=== PATIENT | male | born 1940 | race Caucasian/White ===

== ENCOUNTER 2016-06-21 12:58 | Day surgery (SDC) | payer MEDICARE, OTHER ==
[~2016-06-21 12:58] MED LIST: DIPRIVAN 200 MG/20 ML IV ONE; Lactated Ringers 1,000 ML IV ONE; Lactated Ringers 1,000 ML IV SCH; SUBLIMAZE 100 MCG/2 ML IV ONE; Versed 2 MG/2 ML Injection IV ONE
[2016-06-21 13:18] VITALS: O2SAT 97
[2016-06-21 17:39] VITALS: BP 146/90; PULSE 73
--- NOTE | 2016-06-22 08:42 | OP ---
PROCEDURE DATE/TIME: 06/21/2016 1615 PREOPERATIVE DIAGNOSIS: History of colonic polyps, need for screening colonoscopy. POSTOPERATIVE DIAGNOSIS: Descending colon polyp x2. PROCEDURE: Colonoscopy with hot forceps polypectomy x2 and tattoo in the descending colon at approximately 65 cm. PROCEDURE PERFORMED BY: Jessica Solis M.D. COMPLICATIONS: None. ESTIMATED BLOOD LOSS: Minimal. ANESTHESIA: MAC. SPECIMEN: Descending colon polyps. HISTORY: This is a 75 year-old gentleman who presents for screening colonoscopy. 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 He has not had any new symptoms. All risks, benefits, alternatives to colonoscopy were discussed with the patient in detail. He agreed to proceed. DESCRIPTION OF PROCEDURE: The patient was seen preoperatively as well. He was then brought back to the endoscopy suite and laid in the left lateral decubitus position. A complete time out was performed. A rectal exam was then done. The patient does have external hemorrhoid this disease is mild. The scope was then entered and carefully advanced towards the cecum. Throughout the course there was a small amount of liquid stool that had to be suctioned and irrigated. The patient has mild sigmoid diverticulosis. He had two polyps in the descending colon. We were able to advance the scope all the way to the cecum. The ileocecal valve was visualized. The appendiceal orifice was visualized and these were all normal. As the scope was carefully withdrawn, we took a circumferential inspection. I did not see any issues except for the polyps in the descending colon. These were at approximately 65 cm. The first polyp was more sessile. I had to take three bites with a hot forceps polypectomy to completely remove this but the polyp was removed in its entirety this was done with hot forceps. It was hemostatic. There was another polyp very close by to this about 3 cm more distal and this was taken with hot forceps polypectomy this was very small and appeared benign. It was sent in the same jar to pathology. I then placed a tattoo dye in the usual fashion at the site of the piecemeal polypectomy due to the patient's previous history of cancer in the polyp. Also, I did not think this appeared malignant but if there are any concerning features on the pathology then we will be able to survey this area closer in the future if need be. After the tattoo was complete we confirmed that we had blue dye near to the polypectomy site as well as across from it at both sites where we placed the tattoo ink this looked good. Everything was hemostatic. We then carefully withdrew the scope. I did not find any other issues. The patient tolerated the procedure well. There were no complications. He is going to follow up with me for the results. Should he have any sign of dysplasia, we will survey the colon on a short interval basis. If he does not have any concerning features on the pathology, our plan for the next colonoscopy will be in approximately two years.
== END 2016-06-21 17:59 | disposition home or self-care (01) ==
LOC: SDC 12:58
PROVIDERS: ATTEND Surgery
PROC: 0DBM8ZX Excision of Descending Colon, Via Natural or Artificial Opening Endoscopic, Diagnostic (ICD-10-PCS; principal; 2016-06-21)
DX: D12.4 Benign neoplasm of descending colon (principal); Z86.010 Personal history of colon polyps; Z12.11 Encounter for screening for malignant neoplasm of colon; Z85.118 Personal history of other malignant neoplasm of bronchus and lung; I10 Essential (primary) hypertension; I25.10 Atherosclerotic heart disease of native coronary artery without angina pectoris; E11.9 Type 2 diabetes mellitus without complications; Z79.4 Long term (current) use of insulin; N40.0 Benign prostatic hyperplasia without lower urinary tract symptoms; M54.9 Dorsalgia, unspecified; G89.29 Other chronic pain; Z79.899 Other long term (current) drug therapy
CPT/HCPCS: 00810; 36415; 82962; 88305; 99100; J2250; J2704; J3010

== ENCOUNTER 2018-08-19 09:12 | Day surgery (SDC) | payer MEDICARE, OTHER ==
[~2018-08-19 09:12] MED LIST changes: -DIPRIVAN 200 MG/20 ML IV ONE; -SUBLIMAZE 100 MCG/2 ML IV ONE; -Versed 2 MG/2 ML Injection IV ONE
[2018-08-19] MEDS ORDERED: DIPRIVAN 200 MG/20 ML IV ONE (09:13)
[2018-08-19] MEDS ORDERED: Lactated Ringers 1,000 ML IV ONE ×2 (09:39→13:11)
[2018-08-19 15:26] VITALS: BP 133/64; PULSE 77; O2SAT 96
--- NOTE | 2018-08-20 11:13 | OP ---
PROCEDURE DATE/TIME: 08/19/2018 1305 PREOPERATIVE DIAGNOSIS: Surveillance/screening. Patient has history of colon polyps. POSTOPERATIVE DIAGNOSIS: Multiple sessile colonic polyps, pancolonic diverticulosis and severe hemorrhoidal disease. PROCEDURE: Colonoscopy with hot snare polypectomy x4 and hot forceps polypectomy x4. PROCEDURE PERFORMED BY: Jessica Solis M.D. COMPLICATIONS: None. ESTIMATED BLOOD LOSS: Minimal. ANESTHESIA: MAC. SPECIMENS: 1) Cecal polyp taken with hot snare. 2) Large sessile cecal polyp taken with multiple passes of the hot snare with an additional pass of hot forceps. Large sessile cecal taken with hot snare and tattoo placed next to this as well as a clip at site. 3) Ascending polyp taken with hot forceps. 4) Transverse colon polyps x3 taken with hot forceps. 5) Descending polyp taken with hot snare. 6) Distal descending colon polyp hot snare at 60 cm, tattoo placed here, taken with hot snare. FOLLOW UP: Colonoscopy in three months due to high number of sessile high-risk polyps. HISTORY: This is a 78 year-old gentleman who has had polyps in the past. He presents for colonoscopy. Risks, benefits, alternatives discussed with him preoperatively and he wants to proceed. He was seen in the preoperative area. H&P and consent reviewed with him and confirmed. DESCRIPTION OF PROCEDURE: He was brought back to the endoscopy suite, laid in left lateral decubitus position. A complete time out was performed. Rectal exam done. The patient does have moderate to severe hemorrhoidal disease internal and external. The scope was then inserted and gently advanced to the level of the cecum. The scope was easily navigated to the cecum without any difficulty. There was however a moderate amount of thick liquid stool throughout the colon which we did have to suction and irrigate. We were able to navigate all the way to the cecum and visualized ileocecal valve as well as the appendiceal orifice. These were normal however there were two sessile polyps in the cecum. The first polyp was a smaller sessile polyp which was taken with hot snare this was on the more lateral border of the cecum this was taken in its entirety, retrieved and sent to pathology. Fairly close to the appendiceal orifice but not immediately adjacent to it there was a larger sessile cecal polyp this polyp wrapped around the fold. I had to take pictures from different angles to show the size of this because it did wrap around the fold. There were multiple finger projections of this polyp, very irregular shape. It does not look malignant at all. It looks benign but it is definitely difficult to remove due to its irregular borders with long fingers and the fact that it curves around on both side of a fold. I took the bulk of this polyp out initially with a hot snare on the one side of the fold and then I took the other side of the fold out with hot snare and then the central aspect of the fold I had to use hot snare again as well as hot forceps to completely piecemeal remove this polyp. I did not see any polyp remaining. I did place a clip to insure hemostasis at the center aspect of this polyp. The entire polyp was removed. All specimens were retrieved and sent to pathology together as sessile cecal polyp and then to insure that we know that this polyps pathology is separate than the other polyp, I did place a tattoo dye adjacent to this polyp site for further very close surveillance since this will be needed due to the size and sessile nature of the polyp. We then carefully retrieved the scope taking a circumferential view. I found multiple other polyps. There was one ascending and three transverse colon polyps which were all sessile in nature but smaller. These were all taken with hot forceps in entirety and sent to pathology. There were then two descending colon polyps which were moderate sessile polyps. The first descending colon polyp was taken in its entirety with hot snare, retrieved and sent to pathology. The site was hemostatic. Then the sixth specimen was the distal descending polyp this was actually the eighth polyp but labeled as Specimen #6. This appeared to have a central scar making me concerned that this was possibly regrowth from a prior descending polyp removal. This was close to the old tattoo. This was at 60 cm. I took this in its entirety with hot snare and sent this to pathology. I placed a new tattoo since the old tattoo was very faint and about 2 cm away. I placed a new tattoo at this site for close surveillance and monitoring as I think this will be needed here as well as in the cecum. Everything was hemostatic and then the scope was further withdrawn. No other findings were noted. The patient's prep was not perfect. He does need a scope in three months to survey the sigmoid lesion as well as the cecum and I will try to have him do another enema prior to his next procedure so that we can look at the sigmoid colon mucosa better as well as the remainder of the colon even better because of the tendency that he has to form very flat polyp which are very difficult to see and he did have enough stool that another small or flat lesion could be missed. We will further prep him for next colonoscopy. I have discussed all the findings with his family in the postoperative area. He is going to follow up with me as an outpatient to discuss his initial report and then he will follow up with me again for close surveillance colonoscopy due to our findings from today.
== END 2018-08-19 15:20 | disposition home or self-care (01) ==
LOC: SDC 09:12
PROVIDERS: ATTEND Surgery
DX: Z12.11 Encounter for screening for malignant neoplasm of colon (principal); K57.30 Diverticulosis of large intestine without perforation or abscess without bleeding; K64.4 Residual hemorrhoidal skin tags; K64.8 Other hemorrhoids; D12.0 Benign neoplasm of cecum; K63.5 Polyp of colon; D12.4 Benign neoplasm of descending colon; Z86.010 Personal history of colon polyps
CPT/HCPCS: 88305; 99100; J2704

== ENCOUNTER 2021-11-08 03:08 | Emergency (ER) | payer MEDICARE, OTHER ==
[2021-11-08 04:48] VITALS: O2SAT 99
[2021-11-08] MEDS ORDERED: Hydromorphone 1 mg/ml Injection IM ONE (04:49)
[2021-11-08] MEDS ORDERED: Norflex 60 MG/2 ML IM ONE (04:50)
[2021-11-08] MEDS ORDERED: ZOFRAN ODT 4 MG PO ONE (04:51)
[2021-11-08] MEDS ORDERED: Norflex 60 MG/2 ML ONE (04:55)
[2021-11-08] MEDS ORDERED: ZOFRAN ODT 4 MG ONE (04:55)
[2021-11-08] MEDS ORDERED: Hydromorphone 1 mg/ml Injection ONE (04:55)
[2021-11-08] MEDS ORDERED: KEFLEX 500 MG PO ONE (05:01)
[2021-11-08] MEDS ORDERED: KEFLEX 500 MG ONE (05:05)
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
[2021-11-08 05:19] VITALS: BP 132/78; PULSE 75
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
== END 2021-11-08 05:48 | disposition home or self-care (01) ==
LOC: ED 03:08
DX: S30.810A Abrasion of lower back and pelvis, initial encounter (principal); S70.311A Abrasion, right thigh, initial encounter; S70.211A Abrasion, right hip, initial encounter; S40.811A Abrasion of right upper arm, initial encounter; W18.09XA Striking against other object with subsequent fall, initial encounter; Y93.H9 Activity, other involving exterior property and land maintenance, building and construction; E78.5 Hyperlipidemia, unspecified; E11.9 Type 2 diabetes mellitus without complications; I10 Essential (primary) hypertension; Z79.4 Long term (current) use of insulin; Z79.84 Long term (current) use of oral hypoglycemic drugs; Z79.899 Other long term (current) drug therapy; Z79.891 Long term (current) use of opiate analgesic
CPT/HCPCS: 72131; 72192; 96372; 99283; J1170; J2360; Q0162; A9270-GY

== ENCOUNTER 2023-09-18 17:52 | Emergency (ER) | payer MEDICARE, OTHER ==
[2023-09-18 18:00] VITALS: RESP 18; TEMP 97.2
[2023-09-18] MEDS ORDERED: TETRACAINE 0.5% STERI-UNIT SOL OP ONE ×2 (18:07→18:55)
[2023-09-18] MEDS ORDERED: Fluor-I-Strip/Ful-Flo OP ONE ×2 (18:07→18:55)
[2023-09-18] MEDS ORDERED: Eye-Stream Solution ONE (18:08)
[2023-09-18] MEDS: Fluor-I-Strip/Ful-Flo OP ONE (18:57)
[2023-09-18] MEDS: TETRACAINE 0.5% STERI-UNIT SOL OP STA (18:57)
--- NOTE | 2023-09-18 18:57 | ERPHSYRPT ---
- History of Present Illness Time Seen by Provider: 09/18/23 18:57 Source: patient Exam Limitations: no limitations Patient Subjective Stated Complaint: pt here for pain and tearing to left eye, he was mowing and states had a stick poke left eye Triage Nursing Assessment: pt alert, resp easy, walked in. has redness and tearing to left eye Physician History: The patient, an 83-year-old with diabetes and 20/20 vision, presents after a tree limb recoiled and struck him in the eye while he was mowing and trimming limbs. He describes a sensation of a foreign body in the eye, which persisted despite three attempts at flushing the eye. He denies any prior eye injuries and only requires reading glasses. Timing/Duration: today Location: left eye Severity: moderate Apparent Injury: possibly Associated Symptoms: pain, redness, foreign body sensation Visual Assistive Devices: None Chemical Exposure: No Trauma: Yes Welding Arc/Tanning Bed Exposure: No Allergies/Adverse Reactions: No Known Drug Allergies Allergy (Verified 09/18/23 17:58) Home Medications: Dutasteride/Tamsulosin HCl [Karissa 0.5-0.4 mg Capsule] 1 each PO DAILY 07/19/12 [History] Esomeprazole Magnesium [Nexium] 40 mg PO DAILY 07/19/12 [History] Gemfibrozil [Lopid] 600 mg PO BID 07/19/12 [History] Indomethacin [Indocin] 25 mg PO UD PRN 07/19/12 [History] Metformin HCl [Glucophage] 1,000 mg PO BID 07/19/12 [History] Metoprolol Succinate 50 mg [Toprol Xl 50 MG] 50 mg PO DAILY 07/19/12 [History] Potassium Chloride Tab* [Klor Con] 10 meq PO DAILY 07/19/12 [History] Multivitamin [Multivitamins] 1 each PO DAILY 06/09/16 [History] Zolpidem Tartrate 10 mg PO DAILY 06/09/16 [History] Insulin Glargine [Lantus Insulin] 40 unit SQ DAILY 06/21/16 [History] Levothyroxine Sodium 25 Mcg [Synthroid 25 Mcg] 25 mcg PO DAILY 06/21/16 [History] Rosuvastatin Calcium [Crestor] 20 mg PO DAILY 06/21/16 [History] Gabapentin 100 mg PO BID 08/19/18 [History] Hx Tetanus, Diphtheria Vaccination/Date Given: No Hx Influenza Vaccination/Date Given: Yes (2011) Hx Pneumococcal Vaccination/Date Given: Yes (2009) Travel Risk - International Travel Have you traveled outside of the country in past 3 weeks: No - Emerging Infectious Disease Are you exhibiting symptoms associated with any current EIDs: No - Review of Systems All Other Systems: Reviewed and Negative - Past Medical History Pertinent Past Medical History: Yes Neurological History: No Pertinent History ENT History: No Pertinent History Cardiac History: Coronary Artery Disease, Hypertension Respiratory History: Lung Cancer Endocrine Medical History: Diabetes Type II, Hypothyroidism Musculoskeletal History: Osteoarthritis GI Medical History: Other History: No Pertinent History Psycho-Social History: No Pertinent History Male Reproductive Disorders: Prostate Problems Other Medical History: TYPE II IDDM, CAD W/ 2 STENTS. hiatal hernia - Past Surgical History Past Surgical History: Yes Neuro Surgical History: No Pertinent History Cardiac: Cardiac Catheterization, Cardiac Stent Respiratory: Other Gastrointestinal: No Pertinent History Genitourinary: No Pertinent History Musculoskeletal: No Pertinent History Male Surgical History: No Pertinent History Other Surgical History: prostate bx, colon polypectomy. bilateral heel spur repair. top lobe removed right lung - Social History Smoking Status: Never smoker How long have you smoked: 25yrs Exposure to second hand smoke: No Drug Use: none - Social Determinants of Health Will the patient participate in the screening: Declined to provide - Nursing Vital Signs Nursing Vital Signs: Initial Vital Signs Temperature 97.2 F 09/18/23 17:59 Pulse Rate 86 09/18/23 17:59 Respiratory Rate 18 09/18/23 17:59 Blood Pressure 175/101 09/18/23 17:59 O2 Sat by Pulse Oximetry 98 09/18/23 17:59 Pain Scale Pain Intensity 4 - Physical Exam General Appearance: no apparent distress Vision Acuity Degree Evaluation Phase: Uncorrected Eye Exam: right eye: PERRL, EOMI, corneal abrasion SpO2: 96 Procedures - Eye Procedure Time of Procedure: 19:15 Timeout: Performed Tetracaine Drops Administered: Yes Remaining Material after FB Removal: none Eye Irrigated w/ Saline (ccs): 5 - Course Nursing assessment & vital signs reviewed: Yes Ordered Tests: Medication Summary Discontinued Medications Generic Name Dose Route Start Last Admin Trade Name Freq PRN Reason Stop Dose Admin Eye Irrigation Solution Confirm 09/18/23 18:08 Sodium/Potassium/Julio/Magnesium 30 Ml Eye Wash Administered 09/18/23 18:09 Dose 30 ml .ROUTE .STK-MED ONE Eye Irrigation Solution 15 ml 09/18/23 19:20 09/18/23 19:22 Sodium/Potassium/Julio/Magnesium 30 Ml Eye Wash OP 09/18/23 19:21 15 ml STAT ONE Administration Fluorescein Sodium Confirm 09/18/23 18:07 Fluorescein Sodium 1 Mg/Strip Strip Administered 09/18/23 18:08 Dose 1 mg OP .STK-MED ONE Fluorescein Sodium 1 mg 09/18/23 18:56 09/18/23 18:57 Fluorescein Sodium 1 Mg/Strip Strip OP 09/18/23 18:57 1 mg STAT ONE Administration Fluorescein Sodium Confirm 09/18/23 18:55 Fluorescein Sodium 1 Mg/Strip Strip Administered 09/18/23 18:56 Dose 1 mg OP .STK-MED ONE Tetracaine HCl Confirm 09/18/23 18:07 Tetracaine Hcl/Pf 4 Ml Bottle Administered 09/18/23 18:08 Dose 4 ml OP .STK-MED ONE Tetracaine HCl 4 ml 09/18/23 18:56 09/18/23 18:57 Tetracaine Hcl/Pf 4 Ml Bottle OP 09/18/23 18:57 4 ml STAT STA Administration Tetracaine HCl Confirm 09/18/23 18:55 Tetracaine Hcl/Pf 4 Ml Bottle Administered 09/18/23 18:56 Dose 4 ml OP .STK-MED ONE - Progress Progress: improved Progress Note: Large corneal abrasion overlying pupil. Responded well to tetracaine eye gtts. No foreign body appreciated. Washed out after stain. Prescribed polytrim gtts and ketorolac gtts. Counseled pt/family regarding: diagnosis, need for follow-up Medical Desision Making - Diagnostic Testing Diagnostic test were ordered, analyzed, and reviewed by me: Yes Radiological Interpretation: Interpreted by me - Risk of complications The pt has a mod risk of morbidity or mortality based on: Need for prescription drug management - Departure Departure Disposition: Home Clinical Impression: Corneal abrasion, left Condition: Good Critical Care Time: No Referrals: LAMONTE AGUILAR DO [Primary Care Provider] - Follow up/PCP as directed Instructions: Corneal Abrasion ED Prescriptions: Ketorolac Tromethamine 0.5% [Acular OPTH RONALD] 1 drop OP BID PRN 7 Days #10 ml PRN Reason: Pain Polymyxin B Sulf/Trimethoprim [Polytrim Eye Drops] 1 drop OP Q3H 7 Days #10 ml MDD 6
[2023-09-18] MEDS: Eye-Stream Solution OP ONE (19:22)
[2023-09-18 19:28] VITALS: BP 169/99; PULSE 83
[2023-09-19 20:37] VITALS: O2SAT 96
== END 2023-09-18 19:26 | disposition home or self-care (01) ==
LOC: ED 17:52
DX: S05.02XA Injury of conjunctiva and corneal abrasion without foreign body, left eye, initial encounter (principal); W20.8XXA Other cause of strike by thrown, projected or falling object, initial encounter; Y93.H2 Activity, gardening and landscaping; I10 Essential (primary) hypertension; E11.9 Type 2 diabetes mellitus without complications; Z79.84 Long term (current) use of oral hypoglycemic drugs; Z79.4 Long term (current) use of insulin; Z79.899 Other long term (current) drug therapy
CPT/HCPCS: 99281; A9270-GY

== ENCOUNTER 2023-12-23 18:14 | Emergency (ER) | payer MEDICARE, OTHER ==
[2023-12-23 18:34] VITALS: TEMP 97.7
--- NOTE | 2023-12-23 18:47 | ERPHSYRPT ---
- History of Present Illness Source: patient, family Exam Limitations: no limitations Patient Subjective Stated Complaint: C/O headache to right side of head and behind right eye that started this am and has become worse throughout the day. Patient states that he did fall one week ago () and hit his head. Triage Nursing Assessment: Patient ambulated back to ER without difficulties. He is alert and oriented. Hard of hearing; hearing aids present. SNOWDEN WNL. No skin alterations noted to area of reported pain. Patient denies any changes in his vision but states his right eye doesn't wnat to stay open. Time of Onset/Last Time Seen Normal: around 8 AM Timing/Duration: today Severity: moderate Character of Deficits: vision problems (right eye) Deficits: no difficulties Baseline/Normal Cognition: alert oriented x 3 Current Cognition: alert oriented x 3 Associated Symptoms: denies symptoms Hx Tetanus, Diphtheria Vaccination/Date Given: Yes Hx Influenza Vaccination/Date Given: Yes Hx Pneumococcal Vaccination/Date Given: Yes Immunizations Up to Date: Yes <ANNAMARIE GONZALEZ - Last Filed: 12/23/23 18:47> <TIMMY WILLETT - Last Filed: 12/23/23 23:29> - History of Present Illness Time Seen by Provider: 12/23/23 18:42 Physician History: /O headache to right side of head and behind right eye that started this am and has become worse throughout the day. Patient states that he did fall one week ago (12/16/23) and hit his head. Is 83-year-old male with significant past medical history of hypertension diabetes benign prostatic hyperplasia who fell 1 week ago and hit his head. He was all right till today morning he started having a headache on his right side of the face behind the right eye with loss of some vision for few seconds happened around 8 to 9:00 in the morning. He continues to have a headache and blurred vision on the right side so he came to the emergency room around 6:00 in the evening. In the ER he still has some headache and blurred vision but his vision has improved since morning. He denies any chest pain nausea vomiting flutter blood in the stool or urine. (ANNAMARIE GONZALEZ) Allergies/Adverse Reactions: No Known Drug Allergies Allergy (Verified 12/23/23 18:24) Home Medications: Dutasteride/Tamsulosin HCl [Karissa 0.5-0.4 mg Capsule] 1 each PO DAILY 07/19/12 [History] Esomeprazole Magnesium [Nexium] 40 mg PO DAILY 07/19/12 [History] Gemfibrozil [Lopid] 600 mg PO BID 07/19/12 [History] Indomethacin [Indocin] 25 mg PO UD PRN 07/19/12 [History] Metformin HCl [Glucophage] 1,000 mg PO BID 07/19/12 [History] Metoprolol Succinate 50 mg [Toprol Xl 50 MG] 50 mg PO DAILY 07/19/12 [History] Potassium Chloride Tab* [Klor Con] 10 meq PO DAILY 07/19/12 [History] Multivitamin [Multivitamins] 1 each PO DAILY 06/09/16 [History] Zolpidem Tartrate 10 mg PO DAILY 06/09/16 [History] Insulin Glargine [Lantus Insulin] 40 unit SQ DAILY 06/21/16 [History] Levothyroxine Sodium 25 Mcg [Synthroid 25 Mcg] 25 mcg PO DAILY 06/21/16 [History] Rosuvastatin Calcium [Crestor] 20 mg PO DAILY 06/21/16 [History] Gabapentin 100 mg PO BID 08/19/18 [History] Travel Risk - International Travel Have you traveled outside of the country in past 3 weeks: No - Emerging Infectious Disease Are you exhibiting symptoms associated with any current EIDs: No <CARLOS,ANNAMARIE - Last Filed: 12/23/23 18:47> - Review of Systems Constitutional: No Fever, No Chills Eyes: Vision Changes (right side blurred vision) Ears, Nose, & Throat: No Symptoms Respiratory: No Cough, No Dyspnea Cardiac: No Chest Pain, No Edema, No Syncope Abdominal/Gastrointestinal: No Abdominal Pain, No Nausea, No Vomiting, No Diarrhea Genitourinary Symptoms: No Dysuria Musculoskeletal: No Back Pain, No Neck Pain Skin: No Rash Neurological: Headache, No Dizziness, No Focal Weakness, No Sensory Changes Psychological: No Symptoms Endocrine: No Symptoms All Other Systems: Reviewed and Negative <CARLOS,ANNAMARIE - Last Filed: 12/23/23 18:47> - Past Medical History Pertinent Past Medical History: Yes Neurological History: No Pertinent History ENT History: No Pertinent History Cardiac History: Coronary Artery Disease, Hypertension Respiratory History: Lung Cancer Endocrine Medical History: Diabetes Type II, Hypothyroidism Musculoskeletal History: Osteoarthritis GI Medical History: Hernia, Other History: No Pertinent History Psycho-Social History: No Pertinent History Male Reproductive Disorders: Prostate Problems Other Medical History: TYPE II IDDM, CAD W/ 2 STENTS. hiatal hernia - Past Surgical History Past Surgical History: Yes Neuro Surgical History: No Pertinent History Cardiac: Cardiac Catheterization, Cardiac Stent Respiratory: Other Gastrointestinal: No Pertinent History Genitourinary: No Pertinent History Musculoskeletal: No Pertinent History Male Surgical History: Other Other Surgical History: prostate biopsy, colon polypectomy, bilateral heel spur repair, top lobe removed right lung - Social History Smoking Status: Never smoker How long have you smoked: 25yrs Exposure to second hand smoke: No Drug Use: none - Social Determinants of Health Will the patient participate in the screening: Yes Do you worry about a steady place to live?: No Do you have any problems with any of the following?: No known problems In the past 12 months,have you had to go without utilities?: No Transportation Issues: No Has anyone in your support network made you feel unsafe?: No Have you or anyone in your house had to go without enough: No <CARLOS,ANNAMARIE - Last Filed: 12/23/23 18:47> - Kenan Coma Scale Best Eye Response (Kenan): (4) open spontaneously Best Verbal Response (Kenan): (5) oriented Best Motor Response (Kenan): (6) obeys commands [place] Total: 15 - Physical Exam General Appearance: no apparent distress, alert Eye Exam: bilateral eye: normal inspection, PERRL, EOMI Ears, Nose, Throat Exam: normal ENT inspection, moist mucous membranes Neck Exam: normal inspection, non-tender, supple Respiratory: normal breath sounds, lungs clear, airway intact, No respiratory distress Cardiovascular: regular rate/rhythm, No edema Gastrointestinal: soft, No tenderness, No distention Back Exam: normal inspection Extremity Exam: normal inspection, No pedal edema Peripheral Pulses: carotid (R): 2+, carotid (L): 2+, femoral (R): 2+, femoral (L): 2+, dorsalis-pedis (R): 2+, dorsalis-pedis (L): 2+ 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, 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 Exam: normal hearing, normal speech, PERRL, tongue midline, No abnormal pupil position, No abnormal speech, No facial asymmetry, No facial droop, No facial paresthesias, No facial weakness Coordination/Gait: normal finger to nose, normal gait Motor/Sensory: no motor deficit, no sensory deficit, no pronator drift DTR: bicep (R): 2+, bicep (L): 2+, tricep (R): 2+, tricep (L): 2+, knee (R): 2+, knee (L): 2+, ankle (R): 2+, ankle (L): 2+ Skin Exam: normal color, warm, dry, No rash SpO2 Interpretation: normal SpO2: 95 O2 Delivery: Room Air < Filed: 12/23/23 18:47> - Nursing Vital Signs Nursing Vital Signs: Initial Vital Signs Temperature 97.7 F 12/23/23 18:20 Pulse Rate 91 H 12/23/23 18:20 Respiratory Rate 22 12/23/23 18:20 Blood Pressure 140/82 12/23/23 18:20 O2 Sat by Pulse Oximetry 95 12/23/23 18:20 Pain Scale Pain Intensity 0 - Course Nursing assessment & vital signs reviewed: Yes EKG Interpreted by Me: Non-specific ST Changes Rhythm Strip: Normal Sinus Rhythm - CT Exams Head CT Interpretation: Tele-radiologist Report < Filed: 12/23/23 18:47> Ordered Tests: Active Orders 24 hr Category Date Time Status EKG-ER Only STAT Care 12/23/23 18:40 Completed NPO (ED) STAT Care 12/23/23 18:40 Completed NPO (ED) STAT Care 12/23/23 18:41 Completed NPO (ED) STAT Care 12/23/23 19:47 Completed HEAD WITHOUT CONTRAST [CT] Stat Exams 12/23/23 19:02 Completed CBC W DIFF Stat Lab 12/23/23 19:02 Completed CMP Stat Lab 12/23/23 19:02 Completed PROTIME WITH INR Stat Lab 12/23/23 19:02 Completed PTT Stat Lab 12/23/23 19:02 Completed TROPONIN Q4H Lab 12/23/23 19:02 Completed Medication Summary Discontinued Medications Generic Name Dose Route Start Last Admin Trade Name Freq PRN Reason Stop Dose Admin Acetaminophen 975 mg 12/23/23 19:17 12/23/23 20:10 Acetaminophen 325 Mg Tablet PO 12/23/23 19:18 Not Given STAT ONE Aspirin 324 mg 12/23/23 19:46 12/23/23 20:13 Aspirin 81 Mg Tab.Chew PO 12/23/23 19:47 324 mg STAT ONE Administration Aspirin Confirm 12/23/23 20:11 Aspirin 81 Mg Tab.Chew Administered 12/23/23 20:12 Dose 324 mg .ROUTE .STK-MED ONE Sodium Chloride 1,000 mls @ 999 mls/hr 12/23/23 18:40 12/23/23 20:30 Sodium Chloride 0.9% 1000 Ml IV 12/23/23 19:40 Not Given .Q1H1M STA Lab/Rad Data: Laboratory Result Diagrams 12/23/23 19:02 12/23/23 19:02 Laboratory Results 12/23/23 12/23/23 12/23/23 Range/Units 19:02 19:02 19:02 WBC (4.23-9.07) x10^3/uL RBC (4.63-6.08) x10^6/uL Hgb (13.7-17.5) g/dL Hct (40.1-51.0) % MCV (79.0-92.2) fL MCH (25.7-32.2) pg MCHC (32.3-36.5) g/dL RDW (11.6-14.4) % Plt Count (163-337) x10^3/uL MPV (9.4-12.4) fL Gran % (34.0-67.9) % Immature Gran % (Auto) (0.001-0.429) % Nucleat RBC Rel Count (0.00-0.2) % Eos # (Auto) (0.04-0.54) x10^3/uL Immature Gran # (Auto) (0.001-0.031) x10^3u/L Absolute Lymphs (auto) (1.32-3.57) x10^3/uL Absolute Monos (auto) (0.30-0.82) x10^3/uL Absolute Nucleated RBC (0.00-0.012) x10^3u/L Lymphocytes % (21.8-53.1) % Monocytes % (5.3-12.2) % Eosinophils % (0.8-7.0) % Basophils % (0.2-1.2) % Absolute Granulocytes (1.78-5.38) x10^3/uL Basophils # (0.01-0.08) x10^3/uL PT 10.9 (9.4-12.5) SECONDS INR 1.00 (0.8-3.0) APTT 27.7 (25.1-36.5) SECONDS Sodium 139 (135-145) mmol/L Potassium 4.7 (3.5-5.1) mmol/L Chloride 96 L (98-107) mmol/L Carbon Dioxide 33 H (22-30) mmol/L Anion Gap 14.8 (5-15) MEQ/L BUN 14 (9-20) mg/dL Creatinine 1.06 (0.66-1.25) mg/dL Estimated GFR 69.6 ML/MIN Glucose 370 H (74-106) mg/dL Calcium 9.2 (8.4-10.2) mg/dL Total Bilirubin 0.30 (0.2-1.3) mg/dL AST 28 (17-59) U/L ALT 17 (0-50) U/L Alkaline Phosphatase 106 (38-126) U/L Troponin I < 0.012 (0.000-0.033) ng/mL Serum Total Protein 6.3 (6.3-8.2) g/dL Albumin 3.6 (3.5-5.0) g/dL 12/23/23 Range/Units 19:02 WBC 7.6 (4.23-9.07) x10^3/uL RBC 4.35 L (4.63-6.08) x10^6/uL Hgb 13.0 L (13.7-17.5) g/dL Hct 40.2 (40.1-51.0) % MCV 92.4 H (79.0-92.2) fL MCH 29.9 (25.7-32.2) pg MCHC 32.3 (32.3-36.5) g/dL RDW 13.2 (11.6-14.4) % Plt Count 221 (163-337) x10^3/uL MPV 9.1 L (9.4-12.4) fL Gran % 74.6 H (34.0-67.9) % Immature Gran % (Auto) 1.6 H (0.001-0.429) % Nucleat RBC Rel Count 0.0 (0.00-0.2) % Eos # (Auto) 0.11 (0.04-0.54) x10^3/uL Immature Gran # (Auto) 0.12 H (0.001-0.031) x10^3u/L Absolute Lymphs (auto) 1.20 L (1.32-3.57) x10^3/uL Absolute Monos (auto) 0.46 (0.30-0.82) x10^3/uL Absolute Nucleated RBC 0.00 (0.00-0.012) x10^3u/L Lymphocytes % 15.9 L (21.8-53.1) % Monocytes % 6.1 (5.3-12.2) % Eosinophils % 1.5 (0.8-7.0) % Basophils % 0.3 (0.2-1.2) % Absolute Granulocytes 5.64 H (1.78-5.38) x10^3/uL Basophils # 0.02 (0.01-0.08) x10^3/uL PT (9.4-12.5) SECONDS INR (0.8-3.0) APTT (25.1-36.5) SECONDS Sodium (135-145) mmol/L Potassium (3.5-5.1) mmol/L Chloride (98-107) mmol/L Carbon Dioxide (22-30) mmol/L Anion Gap (5-15) MEQ/L BUN (9-20) mg/dL Creatinine (0.66-1.25) mg/dL Estimated GFR ML/MIN Glucose (74-106) mg/dL Calcium (8.4-10.2) mg/dL Total Bilirubin (0.2-1.3) mg/dL AST (17-59) U/L ALT (0-50) U/L Alkaline Phosphatase (38-126) U/L Troponin I (0.000-0.033) ng/mL Serum Total Protein (6.3-8.2) g/dL Albumin (3.5-5.0) g/dL <TIMMY WILLETT - Last Filed: 12/23/23 23:29> - Progress Progress Note: 12/23/23 19:18 I assumed care for pt from Dr Gonzalez at 19:00 12/23/23 19:53 I spoke w/ Dr Glez - physician home restoration service supervisor for stroke at [facility] - she recommends ED-ED transfer for further stroke w/u 12/23/23 23:28 taken by ground transport to [facility] (TIMMY WILLETT) Medical Desision Making - Diagnostic Testing Diagnostic test were ordered, analyzed, and reviewed by me: Yes Radiological Interpretation: Reviewed by me, Teleradiologist Report - Risk of complications The pt has a high risk of morbidity or mortality based on: Decision regarding hospitilization or escalation of hosp level of care <TIMMY WILLETT - Last Filed: 12/23/23 23:29> <ANNAMARIE GONZALEZ - Last Filed: 12/23/23 18:47> - Departure Departure Disposition: Transfer Critical Care Time: No <TIMMY WILLETT - Last Filed: 12/23/23 23:29> - Departure Clinical Impression: Acute ischemic stroke Condition: Stable Referrals: LAMONTE AGUILAR DO [Primary Care Provider] - Follow up/PCP as directed
[2023-12-23 19:05] LABS: Absolute Neutrophil Ct (ANC) 5.64 x10^3/uL (1.78-5.38); BASOPHIL % 0.3 % (0.2-1.2); Basophil (Absolute #) 0.02 x10^3/uL (0.01-0.08); Eosinophil % 1.5 % (0.8-7.0); Eosinophil (Absolute #) 0.11 x10^3/uL (0.04-0.54); Hematocrit 40.2 % (40.1-51.0); IMMATURE GRAN # 0.12 x10^3u/L (0.001-0.031); IMMATURE GRAN % 1.6 % (0.001-0.429); Lymphocytes % 15.9 % (21.8-53.1); Mean Cell Volume 92.4 fL (79.0-92.2); Mean Corpuscular Hemoglobin 29.9 pg (25.7-32.2); Mean Corpuscular Hgb Concent. 32.3 g/dL (32.3-36.5); Mean Platelet Volume 9.1 fL (9.4-12.4); Monocyte (Absolute #) 0.46 x10^3/uL (0.30-0.82); Monocytes % 6.1 % (5.3-12.2); Neutrophil % 74.6 % (34.0-67.9); Platelet Count 221 x10^3/uL (163-337); Red Blood Count 4.35 x10^6/uL (4.63-6.08); Red Cell Distribution Width 13.2 % (11.6-14.4); White Blood Count 7.6 x10^3/uL (4.23-9.07)
[2023-12-23 19:25] LABS: ALBUMIN 3.6 g/dL (3.5-5.0); ANION GAP 14.8 MEQ/L (5-15); BILIRUBIN,TOTAL 0.3 mg/dL (0.2-1.3); Calcium 9.2 mg/dL (8.4-10.2); Creatinine 1 1.06 mg/dL (0.66-1.25); EST GLOMERULAR FILTRATION RATE 69.6 ML/MIN; Potassium 4.7 mmol/L (3.5-5.1); Total Protein 6.3 g/dL (6.3-8.2)
--- NOTE | 2023-12-23 19:30 | XRAY ---
CLINICAL HISTORY: headache, blurry vision COMPARISON: None. TECHNIQUE: Axial non-contrast CT scan of the brain was performed from the skull base to the high parietal region with coronal and sagittal reconstructions. One of the following dose reduction techniques were utilized for this exam: Automated exposure control, adjustment of the mA and/or kV according to patient size, use of iterative reconstruction. CTDI: 53.92mGy , DLP: 1016.25mGy-cm. FINDINGS: Brain Parenchyma: There is an area of hypoattenuation in the right occipital lobe (S2 Im41/69), which could probably correspond to acute ischemia. Further evaluation is advised. No intraparenchymal bleed or midline shift There are periventricular areas of low attenuation throughout the deep white matter. Ventricular System: Age-related central and cortical involutional brain changes are noted. No evidence of hydrocephalus or ventricular enlargement. Subarachnoid Spaces: Enlarged sulci and cisterns. No evidence of subarachnoid hemorrhage or extra-axial fluid collections. Cerebellum and Brainstem: Normal size and signal. No masses, lesions, or areas of abnormal signal. Orbits: Normal appearance of the globes, optic nerves, and extraocular muscles. No evidence of orbital masses or abnormal signal. Sinuses: Mild mucosal thickening in the right frontal and maxillary sinuses, and left anterior ethmoid air cells. Mastoid Air Cells: Clear mastoid air cells. No evidence of mastoiditis. Skull and Meninges: Normal skull morphology. No evidence of meningeal thickening. IMPRESSION: 1. A hypoattenuating area in the right occipital region for which probable acute ischemia cannot entirely be ruled out. Further evaluation with MR with diffusion-weighted imaging is recommended. 2. Volume loss and chronic microvascular ischemic changes of the periventricular white matter are noted. Electronically Signed by: Dunia Sorensen MD. (12/23/2023 19:24:19 EDT) ADDENDUM: 12/23/2023 19:26:33 EDT [facility] ER was called at [phone] at 06:23 PM [employer], 12/23/2023 and Marina Rogel was informed regarding the presence of critical medical findings in the report. Electronically Signed by: Dunia Sorensen MD. (12/23/2023 19:26:33 EDT)
[2023-12-23 19:38] LABS: PROTIME 10.9 SECONDS (9.4-12.5); PTT 27.7 SECONDS (25.1-36.5)
[2023-12-23] MEDS: TYLENOL 325 MG PO ONE (20:10)
[2023-12-23] MEDS ORDERED: BABY ASPIRIN 81 MG CHEW ONE (20:11)
[2023-12-23] MEDS: BABY ASPIRIN 81 MG CHEW PO ONE (20:13)
[2023-12-23] MEDS: Sodium Chloride 0.9% 1000 ML 1,000 ML IV STA (20:30)
[2023-12-23 21:11] VITALS: BP 123/68; PULSE 86; RESP 23; O2SAT 95
== END 2023-12-23 21:23 | disposition short-term general hospital (02) ==
LOC: ED 18:14
DX: I63.9 Cerebral infarction, unspecified (principal); R51.9 Headache, unspecified; H53.8 Other visual disturbances; I10 Essential (primary) hypertension; E11.9 Type 2 diabetes mellitus without complications; Z79.84 Long term (current) use of oral hypoglycemic drugs; Z79.4 Long term (current) use of insulin; Z79.899 Other long term (current) drug therapy
CPT/HCPCS: 36000; 36415; 70450; 80053; 84484; 85025; 85610; 85730; 93005; 99285; A9270-GY

== ENCOUNTER 2024-02-11 10:28 | Day surgery (SDC) | payer MEDICARE, OTHER ==
--- NOTE | 2024-02-10 17:13 | HP ---
HISTORY OF PRESENT ILLNESS: Patient is an 83-year-old, history of polyps. No bloody stools. Family history negative for colon cancer. He is needing a followup screening colonoscopy. PAST MEDICAL HISTORY: He has had a history of gout. He has had colon polyps, hypertension, arthritis, hyperlipidemia, hypothyroidism, type 2 diabetes, history of lung cancer, history of coronary stent, history of cataracts in the past. PAST SURGICAL HISTORY: He has had partial lobectomy for lung cancer in the past, he had cataract surgery. He had coronary stents and colonoscopy in the past. FAMILY HISTORY: Negative for colon cancer. SOCIAL HISTORY: Former smoker. Occasional alcohol use. MEDICATIONS: Acloson p.r.n., Lantus, Solifenacin, levothyroxine, dutasteride, Gralise, rosuvastatin, metformin, gemfibrozil, Klor-Con, aspirin, metoprolol, multivitamins, allopurinol, indomethacin, zolpidem, Nexium. ALLERGIES: No known drug allergies. REVIEW OF SYSTEMS: Twelve systems reviewed. No chest pain or palpitations. Other systems negative or noncontributory as above and per preadmission questionnaire. PHYSICAL EXAMINATION: GENERAL: Height 5 feet 8 inches. BMI 30.41. No acute distress. HEENT: Sclerae nonicteric. NECK: No JVD. CHEST: Equal excursion, nonlabored breathing. CARDIOVASCULAR: Regular rate and rhythm. ABDOMEN: Soft. EXTREMITIES: No cyanosis or edema. NEUROLOGIC: Alert and oriented. Moving all extremities symmetrically. PSYCHIATRIC: Appropriate mood and affect. RECTAL: Deferred until time of endoscopy exam. IMPRESSION: History of polyp. Needs followup screening colonoscopy. I feel the patient is a candidate. Risks were explained of the procedure in detail, including but not limited to bleeding; infection; risk of bowel injury or perforation; risk of missed or nondiagnosis or incomplete exam possibly requiring barium enema or barium swallow, other studies or procedure; risk of bowel prep or sedation but not limited to. We will proceed without patient followup screening colonoscopy under MAC anesthesia. Otherwise, can hold thinners preop. Continue medications for hypertension, heart disease, hyperlipidemia, gout, thyroid disease and diabetes.
[2024-02-11] MEDS ORDERED: Lactated Ringers 1,000 ML IV ONE (10:43)
[2024-02-11] MEDS: Lactated Ringers 1,000 ML IV SCH (10:45)
[2024-02-11 11:42] LABS: ANION GAP 14.5 MEQ/L (5-15); Calcium 9.3 mg/dL (8.4-10.2); Creatinine 1 1.07 mg/dL (0.66-1.25); EST GLOMERULAR FILTRATION RATE 68.9 ML/MIN; Potassium 3.7 mmol/L (3.5-5.1)
[2024-02-11] MEDS ORDERED: DIPRIVAN 200 MG/20 ML IV ONE ×2 (14:03→14:31)
[2024-02-11 15:14] VITALS: RESP 16
[2024-02-11 15:22] VITALS: BP 142/64; PULSE 82; TEMP 97.2; O2SAT 97
--- NOTE | 2024-02-12 17:18 | OP ---
SURGERY DATE/TIME: 02/11/2024 1102 - 1875 PREOPERATIVE DIAGNOSES: 1) History of questionable hematemesis, need for upper endoscopy. 2) History of polyps, need for followup screening colonoscopy. POSTOPERATIVE DIAGNOSES: 1) ASA class 3. 2) Fair, on the limited side prep. 3) Superficial duodenal ulcer, very superficial. 4) Erosive gastritis. 5) Minimal inflammation, distal esophagus to the GE junction. 6) Multiple colon polyps. 7) Mild diverticulosis, left colon. PROCEDURE: 1) Esophagogastroduodenoscopy with cold biopsy of small bowel to evaluate for celiac sprue, cold biopsy of the small bowel to evaluate for celiac sprue, cold biopsy of the antrum to evaluate for Helicobacter pylori, cold biopsy of the distal esophagus to evaluate for normal variation versus short segment minimal distal esophagitis the last couple millimeters. 2) Colonoscopy of the cecum with hot snare polypectomy, ascending colon polyp. 3) Piecemeal hot snare polypectomy of transverse colon polyp. 4) Piecemeal polypectomy of additional proximal transverse colon polyp, 8 mm in size. 5) Hot biopsy polypectomy of a small 2 mm transverse colon polyp. 6) Hot biopsy polypectomy of sigmoid colon polyp. 7) Hot snare piecemeal polypectomy of 1.1 cm proximal descending colon polyp. SURGEON: Oj Lam MD ANESTHESIA: MAC. ESTIMATED BLOOD LOSS: Minimal. WITHDRAWAL TIME: About 18 minutes. ASA class 3. PREPARATION: Only fair, on the limited side. DESCRIPTION OF PROCEDURE AND FINDINGS: The patient was taken to the operating room. MAC anesthesia was induced. After official time-out and no disagreement with planned procedure, bite block positioned. Video gastroscope easily passed down the esophagus through the patent pylorus to the junction of the third and fourth portions of the duodenum. The duodenum had a very tiny 2.5 mm superficial ulceration in the center portion of duodenum. No signs of any active bleeding. Otherwise, some mild duodenal erythema. Cold biopsy had been taken to evaluate for celiac and evaluate for pathology. Scope pulled back into the stomach. Had some distal erosive gastritis. It looked like it had partial healing. There was nothing deep enough to call any ulcers in the distal stomach. On retroflex, endoscopically there was a large hiatal hernia. The GE junction was up against the scope as well as could be seen. The scope was straightened. The GE junction was about 40 cm. There was minimal distal inflammation, distal at the junction and distal gastroesophageal junction area. The scope was withdrawn after biopsy of the distal esophagus. The remainder of the esophagus with no signs of any masses. There was question whether the combination grossly of a gastritis and the superficial duodenal ulceration has contributed to his history of what sounded like hematemesis. Patient tolerated the procedure well. He should continue his Nexium. We discussed putting him on proton pump inhibitor. Otherwise, scope was pulled back. Attention was turned to colonoscopy. Digital rectal exam did not reveal any rectal masses. Videocolonoscope was inserted and passed up through the slightly tortuous sigmoid, descending, transverse, and ascending colon. With 2 different staff members using external pressure, scope was then passed around to the cecum. Appendiceal orifice and valve well visualized and photo documented. Patient had a polyp that was removed with hot snare polypectomy in piecemeal fashion in the ascending colon. Another one was removed with hot biopsy polypectomy. Scope pulled back into the proximal transverse colon. Another 8 mm polyp was removed. This time it was semi-pedunculated. It was removed with hot biopsy in piecemeal fashion. Appeared to be removed. Adequate hemostasis noted. Base appeared to be viable. Scope pulled back. Another transverse colon polyp, about 8 mm, was removed with hot snare polypectomy in piecemeal fashion and reverse cautery. Further downstream, another small transverse colon polyp, about 2 mm, was removed with hot biopsy polypectomy. Good hemostasis was noted. The scope pulled back. There was a 1.1 cm polyp, semi-pedunculated and elongated, and hot biopsy pieces were taken over and it was removed with a combination of hot snare polypectomy and reverse cautery and the hot biopsy forceps. Base appeared to be viable. Appeared to have good hemostasis. It was felt if the pathology was benign may need followup colonoscope within the next year given the more sessile nature of this polyp. Otherwise, had a few diverticula in the colon. No signs of any other large polyps, masses, or obstructing lesions. There was a small polyp in the sigmoid colon, was removed with hot biopsy polypectomy. Good hemostasis noted. Scope was withdrawn. There were no immediate complications. He did have a little bit of trouble keeping his gas in and may have a little decreased sphincter function. There was no family here to discuss any findings with.
== END 2024-02-11 15:29 | disposition home or self-care (01) ==
LOC: SDC 10:28
PROVIDERS: ATTEND Surgery
DX: Z12.11 Encounter for screening for malignant neoplasm of colon (principal); Z09 Encounter for follow-up examination after completed treatment for conditions other than malignant neoplasm; Z86.0100 Personal history of colon polyps, unspecified; I10 Essential (primary) hypertension; Z85.118 Personal history of other malignant neoplasm of bronchus and lung; K92.0 Hematemesis; K26.9 Duodenal ulcer, unspecified as acute or chronic, without hemorrhage or perforation; K29.70 Gastritis, unspecified, without bleeding; K57.30 Diverticulosis of large intestine without perforation or abscess without bleeding; D12.2 Benign neoplasm of ascending colon; D12.4 Benign neoplasm of descending colon; D12.5 Benign neoplasm of sigmoid colon; D12.3 Benign neoplasm of transverse colon
CPT/HCPCS: 36415; 80048; 93005; 99100; J2704